=== PATIENT | female | born 1975 | race Caucasian/White ===

== ENCOUNTER 2018-03-09 12:47 | Outpatient (CLI) | payer OTHER | END 2018-03-09 12:48 | disposition home or self-care (01) | LOC: BICMAMMO 12:47 | PROVIDERS: ATTEND Family Medicine | DX: Z12.31 Encounter for screening mammogram for malignant neoplasm of breast (principal) | CPT/HCPCS: 77063; 77067 ==

== ENCOUNTER 2018-12-01 12:14 | Outpatient (CLI) | payer OTHER ==
--- NOTE | 2018-12-01 14:00 | RAD ---
RIGHT CLAVICLE 2 VIEWS: Date: 12/01/18 CLINICAL HISTORY: Pain in shoulder region for 6 months. FINDINGS: AC joint is intact. No fracture or dislocation. IMPRESSION: No acute osseous abnormality of right clavicle. POS: [facility]
--- NOTE | 2018-12-01 14:02 | RAD ---
RIGHT SHOULDER 3 VIEWS: Date: 12/01/18 INDICATION: Pain for 6 months. FINDINGS: Glenohumeral relationship is maintained. AC joint is intact. No fracture or dislocation. IMPRESSION: No acute osseous abnormality, right shoulder. POS: [facility]
== END 2018-12-01 12:15 | disposition home or self-care (01) ==
LOC: SCSRAD 12:14
PROVIDERS: ATTEND Nurse Practitioner Family
DX: M25.511 Pain in right shoulder (principal); M89.8X1 Other specified disorders of bone, shoulder